=== PATIENT | female | born 1985 | race Caucasian/White ===

== ENCOUNTER 2024-03-02 06:07 | Day surgery (SDC) | payer BC, SELFPAY ==
[2024-03-02 06:30] VITALS: BMI 27.6
[2024-03-02 06:30] LABS: Ur HCG Qualitative* Negative (Negative)
[2024-03-02 06:34] VITALS: BP 128/82; PULSE 94; RESP 20; TEMP 37.3; O2SAT 98
[2024-03-02] MEDS: SODIUM CHLORIDE 0.9 % (FLUSH) 10 ML SYRINGE IVF (06:50)
--- NOTE | 2024-03-02 07:15 | CRLHL7_ITS ---
For Patients: As a result of the Century Cures Act, medical imaging exams and procedure reports are released immediately into your electronic medical record. You may view this report before your referring provider. If you have questions, please contact your health care provider. INDICATION: intra op for right 2nd MPJ arthroplasty. (sIC) COMPARISON: None available. FINDINGS: Single intraoperative radiograph of the forefoot taken in the lateral projection. Surgical hardware is superimposed upon the distal metatarsals and proximal phalanges which overlap one another. Please refer to the operative note. No real-time collaboration between radiology and the die casting machine operator. Dictated by Alfonzo Matthew MD @ 03/02/2024 11:14:50 AM (Electronically Signed)
[2024-03-02] MEDS: BUPIVACAINE 0.25% 30 ML INJECTION (07:25)
[2024-03-02] MEDS: CEFAZOLIN 2 GM INJ IVP (07:33)
[2024-03-02] MEDS: phenoL 29.57 ML LIQUID 5 ML TOPICAL (08:39)
[2024-03-02 08:50] VITALS: BP 102/76; PULSE 76; RESP 16; TEMP 36.5; O2SAT 96
--- NOTE | 2024-03-02 08:56 | W.ANESCHARGE ---
Anesthesia Charges Start Date/Time Anesthesia Start Date: 03/02/24 Anesthesia Start Time: 07:14 Stop Date/Time Anesthesia Stop Date: 03/02/24 Anesthesia Stop Time: 08:54
[2024-03-02] MEDS: OxyCODONE/APAP 5-325 TABLET PO (09:04)
[2024-03-02 09:05] VITALS: BP 99/67; PULSE 70; RESP 16; O2SAT 98
[2024-03-02 09:20] VITALS: BP 116/96; PULSE 74; RESP 16; O2SAT 98
--- NOTE | 2024-03-02 11:31 | W.PM.PODPROC ---
Date of Procedure: 03/02/24 Surgeon: Darek Pritchard DPM Pre-op Diagnosis: 1. 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 capsulitis 2nd MPJ right 3. plantar wart left foot Post-op Diagnosis: 1. 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 capsulitis 2nd MPJ right 3. plantar wart left foot Type of Procedure: 1. 2nd MPJ arthroplasty with implant right 2. excision of plantar's wart left Indications: patient was seen in clinic for painful 2nd MPJ. Severe degenerative changes are noted and she has not responded to conservative care today. She has elected to move forward with surgical correction. She would also like the wart on left foot removed. I reviewed the procedure, recovery, expectations and potential complications. These include but are not limited to: Continued pain, toe deformity, potential need for future surgery, recurrence of the wart, deep venous thrombosis, pulmonary embolism, complex regional pain syndrome, possible . She understands risks written consent was obtained. Site marked. Procedure Description: Patient was then brought into the operating room placed in supine position on operating table. IV sedation was initiated and local anesthetic injected into the left and right foot. She was prepped and draped in sterile fashion. Standard time-out protocol followed. The right foot was exsanguinated the tourniquet inflated. Linear incision as made over the 2nd MPJ. Incision was carried down through skin subcutaneous tissues. The extensor digitorum brevis tendon was released. A Z-lengthening was performed on the extensor digitorum longus. A linear incision was made over the dorsal aspect of the 2nd MPJ. The capsular tissues showed significant inflammation and they were reflected medial and lateral. The 2nd metatarsal head had severe degenerative changes with cartilage damage and collapse of the lateral aspect. Sagittal saw was used to resect the distal portion of the head of the metatarsal perpendicular to the weight-bearing surface. flat surface was now perfectly aligned to rebalance the toe. Trial size was placed in the middle size chosen. Guide pin placed through the Sizer for and the Sizer removed. An overdrill was then performed over the K-wire and the K-wire removed. Trial implant placed and found to be of perfect position. Trial was removed and broach inserted. Next the actual implant was then placed and tamped until flush with the metatarsal. X-rays confirmed excellent position. There was a small ossicle within the flexor tendon which was left in place. Wound was thoroughly irrigated normal sterile saline. Joint capsule was then tightened medially with 3-0 Vicryl. Capsule closed. Subcutaneous tissues reapproximated with 4-0 Vicryl and skin closed with 4-0 Prolene. Sterile dressing was applied the tourniquet released. Normal capillary fill time returned all digits. on the left foot the wart was debrided and then excised with a scalpel. A curette was used to further remove all wart tissue while not exposing subcutaneous tissues. Base of the lesion was then treated with phenol. The area was irrigated with normal sterile saline. Bandage applied. She was transferred from OR to PACU vital signs stable and vascular status intact bilaterally. She is to be discharged per same-day surgery protocol. She is given oxycodone for pain. She is weight-bearing as tolerated. She will follow up in clinic in 2 days. Anesthesia: MAC and local Hemostasis: ankle Estimated blood loss (mL): 2 Implants: Angelica 2nd MPJ implant x1 Specimens: none sent Disposition: same day
== END 2024-03-02 09:56 | disposition home or self-care (01) ==
PROVIDERS: PCP Family Medicine; Visit Provider Podiatrist
PROC: (CPT 28740; principal; 2024-03-02 07:15)
DX: M19.071 Primary osteoarthritis, right ankle and foot (principal); M77.51 Other enthesopathy of right foot and ankle; M24.174 Other articular cartilage disorders, right foot; B07.0 Plantar wart
CPT/HCPCS: 28899; 17110; 01480; 73620; 81025; A9270; C1776; J0665; J0690; J1100; J2405; J2704; J3010; L8641

== ENCOUNTER 2024-04-21 07:50 | Outpatient (CLI) | payer BC, SELFPAY | END 2024-04-21 07:51 | disposition home or self-care (01) | LOC: INJ CL 07:51 | PROVIDERS: PCP Family Medicine; Visit Provider Family Medicine | DX: M54.16 Radiculopathy, lumbar region (principal); M48.062 Spinal stenosis, lumbar region with neurogenic claudication | CPT/HCPCS: 64483; J1100 ==